=== PATIENT | male | born 1945 | race Caucasian/White ===

== ENCOUNTER 2018-01-18 06:21 | Observation (INO) | payer MEDICARE ==
[2018-01-17 11:35] LABS: BASOPHILS % 0.3 % (0.0-1.0); EOSINOPHILS # (AUTO) 0.1 (0.0-0.4); EOSINOPHILS % 0.7 % (0.0-6.0); HEMOGLOBIN 14.5 g/dL (14.0-18.0); LYMPHOCYTES # (AUTO) 2.3 (1.0-3.2); LYMPHOCYTES % 30.9 % (18.0-39.1); MEAN CORPUSCULAR HEMOGLOBIN 31.7 pg (28-32); MEAN CORPUSCULAR HGB CONC 34.5 g/dL (31-35); MEAN CORPUSCULAR VOLUME 91.7 fL (81-99); MONOCYTES # (AUTO) 0.5 (0.2-0.8); MONOCYTES % 7.3 % (4.4-11.3); NEUTROPHILS # (AUTO) 4.4 (2.1-6.9); NEUTROPHILS % 60.5 % (38.7-80.0); PLATELET COUNT 188 x10e3/uL (140-360); RED BLOOD COUNT 4.58 x10e6/uL (4.3-5.7); RED CELL DISTRIBUTION WIDTH 12.3 % (11.7-14.4)
--- NOTE | 2018-01-17 11:51 | Diagnostic Imaging Report ---
EXAMINATION: PA and lateral views of the chest. COMPARISON: None CLINICAL HISTORY: Preop for heart catheter DISCUSSION: Lungs are well-inflated. Right lower lobe calcified granuloma. No consolidation, pleural effusion, or pneumothorax. Tortuosity of the thoracic aorta. Coronary artery stents. Normal heart size. No pulmonary edema. No acute osseous abnormalities. Right upper quadrant surgical clips likely related to prior cholecystectomy. IMPRESSION: No acute cardiopulmonary abnormalities. Signed by: Dr. Jose Luis Bae M.D. on 01/17/2018 11:47 AM
[2018-01-17 11:58] LABS: INR 0.95; PROTHROMBIN TIME 13.6 seconds (11.9-14.5)
[2018-01-17 11:59] LABS: PARTIAL THROMBOPLASTIN TIME 26.3 seconds (23.8-35.5)
[2018-01-17 12:02] LABS: ALANINE AMINOTRANSFERASE 12 IU/L (0-55); ALBUMIN 4.1 g/dL (3.5-5.0); ALBUMIN/GLOBULIN RATIO 1.3 (0.8-2.0); ALKALINE PHOSPHATASE 64 IU/L (40-150); ANION GAP 11.7 mmol/L (8-16); BLOOD UREA NITROGEN 9 mg/dL (7-26); BUN/CREATININE RATIO 10 (6-25); CALCIUM 9.6 mg/dL (8.4-10.2); CARBON DIOXIDE 27 mmol/L (22-29); CHLORIDE 102 mmol/L (98-107); CREATININE, SERUM 0.88 mg/dL (0.72-1.25); EST GLOMERULAR FILTRATION RATE > 60 ML/MIN (60-); GLUCOSE 101 mg/dL (74-118); POTASSIUM 4.7 mmol/L (3.5-5.1); SODIUM 136 mmol/L (136-145)
[2018-01-18] VITALS (27 sets, daily range): BP systolic 116–173; BP diastolic 72–92
[~2018-01-18] VITALS: Ht 182.9 cm; Wt 97.7 kg
[~2018-01-18 06:21] MED LIST: ATORVASTATIN CA20 MG PO; NORCO 10-325 T1 EACH PO; PANTOPRAZOLE SO40 MG PO; PLAVIX75 MG PO
--- OUTSIDE RECORDS SUMMARY | 2018-01-18 06:23 | XMS REPORT ---
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 Allergies, Adverse Reactions, Alerts This patient has no known allergies or adverse reactions. Medications This patient has no known medications. Results Test Description Test Time Test Comments Text Results Atomic Results Result Comments CHEST 2 VIEWS 2018-01-17 11:46:00 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 COMPARISON: None CLINICAL HISTORY: Preop for heart catheter DISCUSSION: Lungs are well-inflated. Right lower lobe calcified granuloma. No consolidation, pleural effusion, or pneumothorax. Tortuosity of the thoracic aorta. Coronary artery stents. Normal heart size. No pulmonary edema. No acute osseous abnormalities. Right upper quadrant surgical clips likely related to prior cholecystectomy. IMPRESSION: No acute cardiopulmonary abnormalities. Signed by: Dr. Jose Luis Garza M.D. on 01/17/2018 11:47 AM Dictated By: JOSE LUIS GARZA MD 114 Transcribed By: CELIO on 01/17/181146 COPY TO: JOSE LUIS CHAU MD
[2018-01-18] MEDS ORDERED: IOPAMIDOL 370 MG/ML 200 ML INFUS..BTL INJ ONE ×2 (07:15→07:42)
[2018-01-18] MEDS ORDERED: HEPARIN SOD/SOD CHLORIDE 2,000 ML ONE (07:15)
[2018-01-18] MEDS ORDERED: LIDOCAINE HCL 2% LOCAL 20 ML VIAL ONE (07:15)
[2018-01-18] MEDS ORDERED: SODIUM CHLORIDE 0.9% 1000ML 1,000 ML ONE (07:18)
[2018-01-18] MEDS ORDERED: MIDAZOLAM HCL 2 MG/2 ML VIAL ONE ×2 (07:18→07:58)
[2018-01-18] MEDS ORDERED: FENTANYL CITRATE/PF 100MCG/2 ML INJ ONE (07:18)
[2018-01-18] MEDS ORDERED: SODIUM CHLORIDE 0.9% 50ML 50 ML ONE (07:45)
[2018-01-18] MEDS ORDERED: BIVALRIUDIN 250 MG/VIAL VIAL IV ONE (07:45)
[2018-01-18] MEDS ORDERED: CLOPIDOGREL BISULFATE 75 MG TAB ONE (07:45)
[2018-01-18] MEDS ORDERED: NITROGLYCERIN/D5W 200 MCG/ML 250 ML ONE (08:05)
[2018-01-18] MEDS ORDERED: HEPARIN SOD (PORCINE) 1000 UNIT/ML 30ML ONE (08:05)
[2018-01-18] MEDS ORDERED: MORPHINE SULFATE INJ 4 MG/ML INJ IV PRN (08:45)
[2018-01-18] MEDS: CLOPIDOGREL BISULFATE 75 MG TAB PO SCH (09:00)
--- NOTE | 2018-01-18 09:05 | Operative Report ---
DATE OF PROCEDURE: January 18, 2018 PROCEDURES 1. Intracoronary stent placement in the left anterior descending artery. 2. Left heart catheterization. INDICATIONS 1. Angina. 2. Coronary artery disease. COMPLICATIONS: None. ANESTHESIA: Versed, fentanyl and lidocaine. TECHNIQUE: The right groin was draped and prepped in the usual fashion. The area was anesthetized with lidocaine. Standard Seldinger technique was used to place a 6-Czech sheath into the right femoral artery without difficulty. A JL4 catheter was used to selectively engage the left coronary artery. A 3DRC catheter was used to selectively engage the right coronary artery. A pigtail catheter was used to perform a left ventriculogram. Attention was turned to the 95% stenosis in the distal left anterior descending artery after the previously placed stents. The patient was bolused with Angiomax and started on an Angiomax drip. The patient was given 300 mg of Plavix. An XP 3.5 guiding catheter was used to selectively engage the left coronary artery. A Choice PT wire was used to cross the area of stenosis. The area was predilated with a 2.5 mm x 12 mm balloon. A 2.5 mm x 20 mm Synergy stent was then deployed at 16 atmospheres for 30 seconds. The stent was post dilated with a 2.5 x 15 mm noncompliant balloon. There were no complications. There was no residual stenosis. A Mynx device was used for closure. RESULTS: Are as follows: 1. There is a normal left main trunk. 2. There is a large left anterior descending artery, which gave rise to a medium sized diagonal branch. There was a 95% stenosis at the junction of the middle and distal thirds of the left anterior descending artery immediately after the previously placed stents. 3. There was a very large dominant AV circumflex artery, which gave rise to a large bifurcating obtuse marginal branch. There was minimal disease in the circumflex system. 4. There was a small nondominant coronary artery with minimal disease. 5. There is normal left ventricular size and function with an ejection fraction of 60%. CONCLUSION: The patient had successful stent placement in the left anterior descending artery without complication. Job#: [id number] RI
[2018-01-18] MEDS: ASPIRIN 81 MG CHEW TAB PO SCH (10:00)
--- NOTE | 2018-01-18 11:19 | NUR ---
Patient via stretcher into room 188.
--- NOTE | 2018-01-18 11:45 | NUR ---
1130 Patient to room 188; bedside report from Over[employer] Crane Truck Loader RN. VSS, alert and oriented. Right groin with clear tegaderm dressing intact; no drainage, no sign of hematoma. Per laborer road RN, patient previously c/o chest pain; but no pain presently. Dr Meenakshi Smith to bedside, told patient the plan is to discharge patient home in the morning.
--- NOTE | 2018-01-18 13:21 | NUR ---
Dr Scarlett Smith to bedside; orders rec'd.
[2018-01-18] MEDS ORDERED: CALCIUM CARBONATE 500 MG CHEWABLE TABS PO PRN (13:30)
[2018-01-18] MEDS ORDERED: HYDROCODONE/APAP 10MG-325MG TAB PO PRN (13:30)
--- NOTE | 2018-01-18 15:55 | NUR ---
Patient ambulated to restroom independently.
--- NOTE | 2018-01-18 16:04 | Consultation ---
DATE OF CONSULTATION: January 18, 2018 PULMONARY/CRITICAL CARE CONSULTATION CHIEF COMPLAINT: Coronary artery disease with left anterior descending stent. HISTORY OF PRESENT ILLNESS: The patient is a 72-year-old man. He has a history of coronary artery disease with a prior stent in 2009 and 2012. He was evaluated as an outpatient for angina. Stress test showed findings consistent with reversible ischemia in the distribution of left anterior descending artery. The patient came in this morning and had a stent placed in the left anterior descending artery without complication. He received Angiomax and Plavix after the procedure and is now supine and at bed rest. PAST MEDICAL HISTORY 1. Coronary artery disease. 2. Gastroesophageal reflux. 3. Diverticulosis. PAST SURGICAL HISTORY 1. Prior cardiac stents. 2. Left ankle surgery. 3. Colonoscopy. FAMILY HISTORY: The family history is significant for cancer in his mother. SOCIAL HISTORY: The patient is a nonsmoker. He does not drink alcohol. ALLERGIES: THERE ARE NO KNOWN DRUG ALLERGIES. REVIEW OF SYSTEMS: There is no fever. There is no headache. He has no neck pain. He did have chest pain prior to the procedure. He does have some acid reflux and ingestion. PHYSICAL EXAMINATION VITAL SIGNS: Stable. HEENT: No facial swelling or erythema. The nasal mucosa is normal. CARDIAC: Regular rate and rhythm with normal S1 and S2. LUNGS: Auscultation reveals clear breath sounds bilaterally. There is no wheezing. ABDOMEN: Soft, nontender. There is no rebound or guarding. EXTREMITIES: There is no leg edema or calf tenderness. IMPRESSIONS 1. Coronary artery disease with left anterior descending stent. 2. Gastroesophageal reflux. 3. Hypercholesterolemia. PLAN 1. Continue current regimen post stent placement. 2. Antiplatelet therapy. 3. Pepcid and antacids for gastroesophageal reflux at this time. 4. Try to avoid proton pump inhibitors for the time being because of the potential interaction with Plavix. Job#: [id number]
[2018-01-18] MEDS: FAMOTIDINE 20 MG/2 ML VIAL IV SCH (17:09)
--- NOTE | 2018-01-18 17:44 | NUR ---
Patient sitting up in bed eating dinner. No acute distress noted.
--- NOTE | 2018-01-18 19:00 | NUR ---
Bedside report received from AM nurse Elena. Patient comfortably resting on his bed. Denied pain and no SOB. Patient instructed to call for help as needed,verbalized and understand. Bed in lower position,locked. Call lott within reach.Will continue to monitor.
[2018-01-18] MEDS ORDERED: ZOLPIDEM TARTRATE 5 MG TAB PO PRN (21:00)
[2018-01-18] MEDS ORDERED: ATORVASTATIN 40 MG TAB PO SCH ×2 (21:00)
[2018-01-19 00:04] VITALS: BP 126/70
[2018-01-19 05:03] LABS: BASOPHILS % 0.2 % (0.0-1.0); EOSINOPHILS # (AUTO) 0.1 (0.0-0.4); EOSINOPHILS % 0.8 % (0.0-6.0); HEMATOCRIT 38.4 % (38.2-49.6); HEMOGLOBIN 13.2 g/dL (14.0-18.0); LYMPHOCYTES # (AUTO) 2.1 (1.0-3.2); LYMPHOCYTES % 25.7 % (18.0-39.1); MEAN CORPUSCULAR HEMOGLOBIN 31.2 pg (28-32); MEAN CORPUSCULAR HGB CONC 34.4 g/dL (31-35); MEAN CORPUSCULAR VOLUME 90.8 fL (81-99); MONOCYTES # (AUTO) 0.7 (0.2-0.8); MONOCYTES % 8.9 % (4.4-11.3); NEUTROPHILS # (AUTO) 5.3 (2.1-6.9); PLATELET COUNT 164 x10e3/uL (140-360); RED BLOOD COUNT 4.23 x10e6/uL (4.3-5.7); RED CELL DISTRIBUTION WIDTH 12.4 % (11.7-14.4)
[2018-01-19 05:05] VITALS: BP 134/73
[2018-01-19 05:29] LABS: ALANINE AMINOTRANSFERASE 14 IU/L (0-55); ALBUMIN 3.5 g/dL (3.5-5.0); ALBUMIN/GLOBULIN RATIO 1.3 (0.8-2.0); ALKALINE PHOSPHATASE 52 IU/L (40-150); ANION GAP 10.1 mmol/L (8-16); BLOOD UREA NITROGEN 8 mg/dL (7-26); BUN/CREATININE RATIO 9 (6-25); CARBON DIOXIDE 26 mmol/L (22-29); CHLORIDE 105 mmol/L (98-107); CHOL/HDL RATIO 6.2 (3.9-4.7); CHOLESTEROL 154 MD/DL (0-199); CREATININE, SERUM 0.94 mg/dL (0.72-1.25); EST GLOMERULAR FILTRATION RATE > 60 ML/MIN (60-); GLUCOSE 106 mg/dL (74-118); HDL CHOLESTEROL 25 MG/DL (40-60); LDL CHOLESTEROL 103 MG/DL (60-130); POTASSIUM 4.1 mmol/L (3.5-5.1); SODIUM 137 mmol/L (136-145); TRIGLYCERIDES 129 MG/DL (0-149)
--- NOTE | 2018-01-19 06:54 | NUR ---
Bedside report given to GUERA Clayton.
[2018-01-19 07:00] VITALS: BP 118/42
--- NOTE | 2018-01-19 07:00 | NUR ---
BEDSIDE REPORT RECVD. VSS. ASSESSMENT COMPLETED AND RECORDED.
--- NOTE | 2018-01-19 07:30 | NUR ---
ANITA MAKING ROUNDS FOR CARDIAC MD. OK TO GO HOME. ALL QUESTIONS AND CONCERNS ANSWERED. PT VERBALIZES UNDERSTANDING AND COMPLIANCE WITH CARE.
[2018-01-19] MEDS: CLOPIDOGREL BISULFATE 75 MG TAB PO SCH (08:10)
[2018-01-19] MEDS: FAMOTIDINE 20 MG/2 ML VIAL IV SCH (08:10)
[2018-01-19] MEDS: ASPIRIN 81 MG CHEW TAB PO SCH (08:10)
--- NOTE | 2018-01-19 08:15 | NUR ---
DR CHAU MAKING ROUNDS, FINALIZED D/C ORDERS AND DISCUSSED WITH PT. NO FURTHER QUESTIONS. DISCHARGE INSTRUCTIONS REVIEWED WITH PTS, ALL MEDS AND SIDE EFFECTS REVIEWED WITH PT. HE VERBALIZES UNDERSTANDING AND COMPLIANCE. REMOVED LEFT IV, CATH INTACT.
--- NOTE | 2018-01-19 08:45 | NUR ---
DISCHARGED HOME VIA , TOLERATES WELL.
[2018-01-19] MEDS ORDERED: ATORVASTATIN 20 MG TAB PO SCH (09:00)
--- NOTE | 2018-01-19 17:01 | Discharge Summary ---
DISCHARGE DIAGNOSES 1. Coronary artery disease requiring angioplasty and stent placement. 2. Gastroesophageal reflux. 3. Hyperlipidemia. CONSULTING PHYSICIANS: Dr. Jose Luis Smith of cardiology. PROCEDURES: Angioplasty with stent placement in the left anterior descending artery. HISTORY OF PRESENT ILLNESS: The patient had worsening chest pain. Preoperative evaluation showed reversible ischemia in the distribution of the left anterior descending artery. He subsequently was admitted and underwent a catheterization with an angioplasty and stent placement in the left anterior descending artery. HOSPITAL COURSE: The patient was admitted. He went to the dental laboratory worker. He had an angiogram followed by dilatation and stent placement of the left anterior descending artery. He received Angiomax perioperatively. He received Plavix 300 mg followed by 75 mg a day. Postoperatively the patient remained supine but had difficulty with some acid reflux. He required treatment with TUMS and Pepcid. The Protonix was held temporally because of the potential interaction with Plavix. DISPOSITION: The patient was discharged home and will follow up with Cardiology in 1 week. KAMILLA SMITH MD Job#: [id number] EV
[2018-02-08] MEDS ORDERED: FENTANYL CITRATE/PF 100MCG/2 ML INJ ONE (19:38)
== END 2018-01-19 08:54 | disposition home or self-care (01) ==
LOC: CATH LAB 06:21 → CATH LAB V 08:39 → IMCU 11:53
PROVIDERS: ADMIT Internal Medicine Cardiovascular Disease; ATTEND Internal Medicine Cardiovascular Disease
DX: I25.119 Atherosclerotic heart disease of native coronary artery with unspecified angina pectoris (principal); R94.39 Abnormal result of other cardiovascular function study; Z95.5 Presence of coronary angioplasty implant and graft; K21.9 Gastro-esophageal reflux disease without esophagitis; K57.30 Diverticulosis of large intestine without perforation or abscess without bleeding; E78.00 Pure hypercholesterolemia, unspecified; Z01.810 Encounter for preprocedural cardiovascular examination; Z01.812 Encounter for preprocedural laboratory examination; Z01.811 Encounter for preprocedural respiratory examination
CPT/HCPCS: 93458; C9600; 36415; 71046; 80053; 80061; 85025; 85610; 85730; 92928; 93005; C1769; C1874; G0378; J0583; J1644; J2001; J2250; J7030; Q9967

== ENCOUNTER → 2019-10-11 | Day surgery (SDC) | payer MEDICARE, OTHER ==
[~2019-10-11] MED LIST changes: +ASPIRIN81 MG PO; +FENTANYL CITRATE/PF 100MCG/2 ML INJ ONE; +GLUCAGON FOR INJ 1 MG VIAL ONE; +HYOSCYAMINE 0.125 MG TAB ONE; +MIDAZOLAM HCL 2 MG/2 ML VIAL ONE; +MIDODRINE HCL2.5 MG PO; +NEXIUM40 MG PO; +PROPOFOL IV EMULSION 10 MG/ML 20 ML VIAL ONE
[2019-10-11 10:25] VITALS: BP 120/75
--- NOTE | 2019-10-11 11:37 | Operative Report ---
DATE OF PROCEDURE: 10/11/2019 SURGEON: Vern Whaley MD PROCEDURES: EGD with biopsies and colonoscopy with polypectomy. INDICATIONS FOR EGD: Heartburn, upper abdominal pain. INDICATIONS FOR COLONOSCOPY: Surveillance colonoscopy, personal history of colon polyps. MEDICATIONS: The patient was done under MAC, please see anesthesiologist's note. PROCEDURE IN DETAIL: With the patient in the left lateral decubitus position, a flexible fiberoptic Olympus gastroscope was introduced into the esophagus under direct visualization without any difficulty. The esophagus appeared to be within normal limits. The scope was then advanced with ease into the stomach. Mucosa overlying the antrum and the body revealed some patchy erythema and low-grade to moderate edema, and biopsies were obtained and sent to stain for H. pylori. The pylorus was of normal contour and shape, was intubated with ease and the scope was advanced all the way to the second portion of the duodenum. Biopsies were obtained from the proximal second portion and the duodenal bulb to rule out sprue. The scope was then withdrawn back into the stomach and retroflexed, mucosa overlying the fundus and the cardia appeared to be within normal limits. The scope was then straightened out, it was subsequently withdrawn, and the patient tolerated the procedure well. IMPRESSION: 1. Normal esophagus. 2. Gastritis, biopsied, biopsies sent to stain for Helicobacter pylori. 3. Rule out sprue. PLAN: Follow up histology. Continue Nexium 40 mg one p.o. q.a.m. before meals. Add Carafate 1 g p.o. before meals t.i.d. and at bedtime. The patient was then turned around and after adequate lubrication of the anal canal, a flexible fiberoptic Olympus colonoscope was inserted into the rectum with ease and advanced all the way to the cecum. Diverticular disease was pretty much noted throughout. Mucosa overlying the cecum appeared to be within normal limits. The scope was then withdrawn slowly. An approximately 1 cm sessile polyp was noted in the proximal ascending colon that was removed per snare electrocautery and site was hemoclipped x2. The rest of the ascending, transverse, descending, and sigmoid other than for diverticular disease appeared to be within normal limits. The rectum appeared to be within normal limits. The scope was then retroflexed into the distal rectum and small internal hemorrhoids were noted, none of which was actively bleeding. The scope was then straightened out, it was subsequently withdrawn, and the patient tolerated the procedure well. IMPRESSION: 1. Pandiverticulosis. 2. Approximately 1 cm sessile polyp in proximal ascending colon, removed per hot snare polypectomy and hemoclipped x2. 3. Internal hemorrhoids, none actively bleeding. PLAN: Follow up histology. Initiate high-fiber, low-fat diet. Initiate high-fiber supplement. The patient might benefit from a followup colonoscopy in 3 to 5 years. Vern Whaley MD [facility] [place][id number] cc: Yifan Moser
== END | disposition home or self-care (01) ==
LOC: OR 05:55
PROVIDERS: ATTEND Internal Medicine Gastroenterology
DX: K29.70 Gastritis, unspecified, without bleeding (principal); D12.2 Benign neoplasm of ascending colon; K21.9 Gastro-esophageal reflux disease without esophagitis; K57.30 Diverticulosis of large intestine without perforation or abscess without bleeding; K59.09 Other constipation; K64.8 Other hemorrhoids; E78.00 Pure hypercholesterolemia, unspecified; H91.90 Unspecified hearing loss, unspecified ear; I25.10 Atherosclerotic heart disease of native coronary artery without angina pectoris; Z01.810 Encounter for preprocedural cardiovascular examination; Z01.812 Encounter for preprocedural laboratory examination; Z11.59 Encounter for screening for other viral diseases; Z79.02 Long term (current) use of antithrombotics/antiplatelets; Z79.82 Long term (current) use of aspirin; Z68.32 Body mass index [BMI] 32.0-32.9, adult; Z95.5 Presence of coronary angioplasty implant and graft
CPT/HCPCS: 43239; 45378; 45385; 88305; 88312; 93005; J1610; J2250; J3010; U0002

== ENCOUNTER → 2020-02-25 | Day surgery (SDC) | payer MEDICARE ==
[2020-02-20 12:35] LABS: BASOPHILS % 0.3 % (0.0-1.0); EOSINOPHILS # (AUTO) 0.1 (0.0-0.4); EOSINOPHILS % 0.7 % (0.0-6.0); HEMATOCRIT 42.5 % (38.2-49.6); HEMOGLOBIN 14.1 g/dL (14.0-18.0); LYMPHOCYTES # (AUTO) 2.1 (1.0-3.2); LYMPHOCYTES % 30.2 % (18.0-39.1); MEAN CORPUSCULAR HGB CONC 33.2 g/dL (31-35); MEAN CORPUSCULAR VOLUME 90.4 fL (81-99); MONOCYTES # (AUTO) 0.5 (0.2-0.8); NEUTROPHILS # (AUTO) 4.3 (2.1-6.9); NEUTROPHILS % 61.5 % (38.7-80.0); PLATELET COUNT 191 x10e3/uL (140-360); RED CELL DISTRIBUTION WIDTH 12.7 % (11.7-14.4)
[~2020-02-25] MED LIST changes: +DONNATAL/LIDOCAINE/MAALOX 30 ML SUSP PO ONE; -GLUCAGON FOR INJ 1 MG VIAL ONE; -HYOSCYAMINE 0.125 MG TAB ONE; +LIDOCAINE HCL 2% LOCAL INJ 5 ML SDV VIAL INJ ONE; +METOCLOPRAMIDE HCL 10 MG/2ML VIAL ONE; +PEPCID20 MG PO
[2020-02-25 09:00] VITALS: BP 124/75
[2020-02-28 06:12] LABS: ENDOMYSIAL ANTIBODIES, IGA Negative (Negative)
== END | disposition home or self-care (01) ==
LOC: OR 05:57
PROVIDERS: ATTEND Internal Medicine Gastroenterology
DX: K29.70 Gastritis, unspecified, without bleeding (principal); K21.9 Gastro-esophageal reflux disease without esophagitis; Z90.49 Acquired absence of other specified parts of digestive tract; I25.10 Atherosclerotic heart disease of native coronary artery without angina pectoris; E78.5 Hyperlipidemia, unspecified; Z01.810 Encounter for preprocedural cardiovascular examination; Z01.812 Encounter for preprocedural laboratory examination; Z20.828 Contact with and (suspected) exposure to other viral communicable diseases; Z79.02 Long term (current) use of antithrombotics/antiplatelets; Z79.82 Long term (current) use of aspirin; Z95.5 Presence of coronary angioplasty implant and graft
CPT/HCPCS: 36415; 43239; 82784; 83516; 85025; 86256; 88305; 88312; 93005; J2001; J2250; J2704; J2765; J3010; U0002

== ENCOUNTER 2020-06-19 07:14 | Observation (INO) | payer MEDICARE ==
[2020-06-17 16:54] LABS: BASOPHILS % 0.1 % (0.0-1.0); EOSINOPHILS # (AUTO) 0.1 (0.0-0.4); EOSINOPHILS % 0.6 % (0.0-6.0); HEMATOCRIT 41.4 % (38.2-49.6); LYMPHOCYTES # (AUTO) 2.4 (1.0-3.2); LYMPHOCYTES % 28.2 % (18.0-39.1); MEAN CORPUSCULAR HGB CONC 33.8 g/dL (31-35); MEAN CORPUSCULAR VOLUME 91.6 fL (81-99); MONOCYTES # (AUTO) 0.6 (0.2-0.8); MONOCYTES % 6.7 % (4.4-11.3); NEUTROPHILS # (AUTO) 5.4 (2.1-6.9); NEUTROPHILS % 64.2 % (38.7-80.0); PLATELET COUNT 179 x10e3/uL (140-360); RED BLOOD COUNT 4.52 x10e6/uL (4.3-5.7); RED CELL DISTRIBUTION WIDTH 13.2 % (11.7-14.4)
[2020-06-17 17:11] LABS: ANION GAP 14.8 mmol/L (8-16); BLOOD UREA NITROGEN 9 mg/dL (7-26); BUN/CREATININE RATIO 11 (6-25); CARBON DIOXIDE 25 mmol/L (22-29); CHLORIDE 107 mmol/L (98-107); CREATININE, SERUM 0.84 mg/dL (0.72-1.25); EST GLOMERULAR FILTRATION RATE > 60 ML/MIN (60-); GLUCOSE 86 mg/dL (74-118); POTASSIUM 3.8 mmol/L (3.5-5.1); SODIUM 143 mmol/L (136-145)
[2020-06-17 17:35] LABS: INR 0.96; PROTHROMBIN TIME 13.4 seconds (11.9-14.5)
[~2020-06-19] VITALS: Ht 182.9 cm; Wt 97.1 kg
[~2020-06-19 07:14] MED LIST changes: +BUPIVACAINE 0.5%/EPI 30 ML SDV INJ ONE; -DONNATAL/LIDOCAINE/MAALOX 30 ML SUSP PO ONE; -FENTANYL CITRATE/PF 100MCG/2 ML INJ ONE; +HYDROCODON-ACE1 EAC9 PO; -LIDOCAINE HCL 2% LOCAL INJ 5 ML SDV VIAL INJ ONE; -METOCLOPRAMIDE HCL 10 MG/2ML VIAL ONE; -MIDAZOLAM HCL 2 MG/2 ML VIAL ONE; -PROPOFOL IV EMULSION 10 MG/ML 20 ML VIAL ONE; +THROMBIN FOR SOLN 5,000 UNIT VIAL ONE; +VANCOMYCIN HCL 1 GM VIAL ONE
[2020-06-19] MEDS ORDERED: CEFAZOLIN SOD 1 GM/NS 50ML 100 ML IV ONE (08:39)
[2020-06-19] MEDS ORDERED: LIDOCAINE HCL (LTA) 4 ML SOLN ONE (09:07)
[2020-06-19] MEDS ORDERED: ACETAMINOPHEN 1000 MG/100 ML 100 ML IV ONE (09:07)
[2020-06-19] MEDS ORDERED: FENTANYL CITRATE/PF 100MCG/2 ML INJ ONE (10:48)
[2020-06-19] MEDS ORDERED: MORPHINE SULFATE 5 MG/ML VIAL IM PRN (11:00)
[2020-06-19] MEDS ORDERED: MAGNESIUM/ALUMINUM/SIMETHICONE 30 ML UDC PO PRN (11:00)
[2020-06-19] MEDS ORDERED: PROMETHAZINE HCL (IM) 25 MG/ML VIAL IM PRN (11:00)
[2020-06-19] MEDS ORDERED: HYDROMORPHONE 2MG/ML 2 MG/ML ML IV PRN (11:00)
[2020-06-19] MEDS ORDERED: ONDANSETRON HCL INJ 2MG/ML 2ML 2 MG/ML VIAL IV PRN (11:00)
[2020-06-19] MEDS ORDERED: CEPACOL SORE THROAT LOZENGES PO PRN (11:00)
[2020-06-19] MEDS ORDERED: ACETAMINOPHEN 325 MG TAB PO PRN (11:00)
[2020-06-19] MEDS ORDERED: ZOLPIDEM TARTRATE 5 MG TAB PO PRN (11:00)
[2020-06-19] MEDS: LACTATED RINGER'S 1,000 ML IV SCH ×2 (11:00→19:20)
[2020-06-19] MEDS ORDERED: HYDROCODON-ACE1 EA12 PO (11:03)
[2020-06-19] MEDS ORDERED: HYDROMORPHONE 1MG/1ML INJ ONE (11:49)
[2020-06-19] MEDS ORDERED: MORPHINE SULFATE INJ 4 MG/ML INJ 1ML IM PRN (12:00)
[2020-06-19 12:50] VITALS: BP 153/74
[2020-06-19] MEDS ORDERED: LIDOCAINE HCL 2% LOCAL INJ 5 ML SDV VIAL INJ ONE (13:18)
[2020-06-19] MEDS ORDERED: POVIDONE IODINE 0.05% 0.05 % ML PO ONE (13:18)
[2020-06-19] MEDS ORDERED: ONDANSETRON HCL INJ 2MG/ML 2ML 2 MG/ML VIAL ONE (13:18)
[2020-06-19] MEDS ORDERED: ROCURONIUM BROMIDE 10 MG/ML 5ML VIAL IV ONE (13:18)
[2020-06-19] MEDS ORDERED: DESFLURANE 240 ML BTL INH ONE (13:18)
[2020-06-19] MEDS ORDERED: PROPOFOL IV EMULSION 10 MG/ML 20 ML VIAL ONE (13:18)
[2020-06-19] MEDS ORDERED: GLYCOPYRROLATE INJ 0.2 MG/ML VIAL ONE (13:18)
[2020-06-19] MEDS ORDERED: NEOSTIGMINE 1 MG/ML 10ML VIAL ONE (13:18)
[2020-06-19] MEDS ORDERED: DEXAMETHASONE SOD PHOS INJ 4 MG/ML VIAL ONE (13:18)
[2020-06-19] MEDS: OXYCODONE/ACETAMINOPHEN 5-325 1 EACH TABLET PO PRN ×2 (14:17→20:28)
[2020-06-19 14:31] VITALS: BP 153/74
[2020-06-19] MEDS: CARISOPRODOL 350 MG TAB PO PRN ×2 (14:35→20:28)
[2020-06-19 16:14] VITALS: BP 151/80
[2020-06-19] MEDS: FAMOTIDINE 20 MG TAB PO SCH (16:46)
[2020-06-19] MEDS: CEFAZOLIN SOD 1 GM/NS 50ML 50 ML IV SCH (16:46)
[2020-06-19] MEDS ORDERED: PANTOPRAZOLE SOD 40 MG TABEC PO SCH (17:00)
[2020-06-19 20:00] VITALS: BP 153/95
[2020-06-19] MEDS: PANTOPRAZOLE SOD 40 MG TABEC PO SCH (20:26)
[2020-06-19] MEDS ORDERED: ATORVASTATIN 40 MG TAB PO SCH (21:00)
[2020-06-19 21:16] VITALS: BP 153/95
[2020-06-20] VITALS: BP 116/85
[2020-06-20] MEDS: CEFAZOLIN SOD 1 GM/NS 50ML 50 ML IV SCH ×2 (01:33→07:31)
[2020-06-20] MEDS: LACTATED RINGER'S 1,000 ML IV SCH (03:40)
[2020-06-20 04:00] VITALS: BP 145/77
[2020-06-20] MEDS: PANTOPRAZOLE SOD 40 MG TABEC PO SCH (07:30)
[2020-06-20] MEDS: FAMOTIDINE 20 MG TAB PO SCH (07:30)
[2020-06-20 07:44] VITALS: BP 127/72
[2020-06-20 08:49] VITALS: BP 127/72
[2020-06-20] MEDS: OXYCODONE/ACETAMINOPHEN 5-325 1 EACH TABLET PO PRN (09:19)
== END 2020-06-20 10:15 | disposition home or self-care (01) ==
LOC: OR 07:14 → PACU V 10:59 → MED/SURG 13:11
PROVIDERS: ADMIT Neurological Surgery; ATTEND Neurological Surgery
DX: M50.120 Mid-cervical disc disorder, unspecified level (principal); Z20.822 Contact with and (suspected) exposure to COVID-19; Z01.818 Encounter for other preprocedural examination; I10 Essential (primary) hypertension; E78.5 Hyperlipidemia, unspecified; I25.10 Atherosclerotic heart disease of native coronary artery without angina pectoris; Z95.5 Presence of coronary angioplasty implant and graft
CPT/HCPCS: 20931; 22551; 22552; 22845; 36415; 71046; 72040; 77003; 80048; 85025; 85610; 85730; 86850; 86900; 88304; 88311; 93005; C1713 ×4; C1763; G0378 ×2; J0131; J0690 ×2; J1100; J1170 ×2; J2001; J2270; J2405; J2704; J2710; J3010; J3370; J7121; L8699; S0164 ×2; U0002

== ENCOUNTER → 2020-07-17 | Outpatient (CLI) | payer MEDICARE ==
[~2020-07-17] MED LIST changes: -BUPIVACAINE 0.5%/EPI 30 ML SDV INJ ONE; +HYDROCODON-ACE1 EA12 PO; -THROMBIN FOR SOLN 5,000 UNIT VIAL ONE; -VANCOMYCIN HCL 1 GM VIAL ONE
== END ==
LOC: RAD 08:13
PROVIDERS: ATTEND Neurological Surgery
DX: M50.20 Other cervical disc displacement, unspecified cervical region (principal)
CPT/HCPCS: 72050

== ENCOUNTER → 2021-01-05 | Outpatient (CLI) | payer MEDICARE | LOC: RAD 12:34 | PROVIDERS: ATTEND Neurological Surgery | DX: M50.20 Other cervical disc displacement, unspecified cervical region (principal); M43.22 Fusion of spine, cervical region | CPT/HCPCS: 72050 ==